=== PATIENT | female | born 1930 | race Caucasian/White ===

== ENCOUNTER 2017-10-24 15:32 | Inpatient (IN) | payer MEDICARE, OTHER ==
[2017-10-24 16:29] LABS: ADD MAN DIFF? NO
[2017-10-24 16:32] LABS: BASOPHILS % 0.3 % (0.0-2.0); EOSINOPHILS # 0.1 10^3/ul (0.0-0.5); EOSINOPHILS % 0.5 % (0.0-7.0); HEMATOCRIT 36.8 % (37.0-47.0); HEMOGLOBIN 11.8 g/dl (12.0-16.0); LYMPHOCYTES # 1.8 10^3/ul (0.8-2.9); LYMPHOCYTES % 13.5 % (15.0-51.0); MEAN CORPUSCULAR HEMOGLOBIN 33.5 pg (29.0-33.0); MEAN CORPUSCULAR HGB CONC 32.1 g/dl (32.0-37.0); MEAN CORPUSCULAR VOLUME 104.5 fl (82.0-101.0); MEAN PLATELET VOLUME 10.3 fl (7.4-10.4); MONOCYTE # 0.6 10^3/ul (0.3-0.9); MONOCYTES % 4.5 % (0.0-11.0); NEUTROPHIL # 10.8 10^3/ul (1.6-7.5); NEUTROPHILS % 80.5 % (39.0-77.0); PLATELET COUNT 242 10^3/UL (140-415); RED BLOOD COUNT 3.52 10^6/ul (4.20-5.40); RED CELL DISTRIBUTION WIDTH 14.1 % (11.5-14.5)
[2017-10-24 16:32] LABS: WHITE BLOOD COUNT 13.4 10^3/ul (4.8-10.8)
[2017-10-24 16:49] LABS: ANION GAP 24 (8-16); BLOOD UREA NITROGEN 36 mg/dl (7-20); CALCIUM 8.7 mg/dl (8.4-10.2); CARBON DIOXIDE 17 mmol/L (21-31); CHLORIDE 115 mmol/L (97-110); CREATININE 1.73 mg/dl (0.44-1.00); GLUCOSE 192 mg/dl (70-220); LIPASE 68 U/L (23-300); POTASSIUM 5.1 mmol/L (3.5-5.1); SODIUM 151 mmol/L (135-144)
[2017-10-24] MEDS: SOD CHLORIDE 0.9% 1,000 ML IV ×2 (16:49→19:50)
[2017-10-24] MEDS: ONDANSETRON 4 MG INJ IV (16:49)
[2017-10-24 17:02] LABS: TROPONIN-I < 0.012 ng/ml (0.00-0.12)
[2017-10-24 17:11] LABS: LACTIC ACID 4.4 mmol/L (0.5-2.0)
[2017-10-24 17:53] LABS: ADD UMIC YES; UR ASCORBIC ACID NEGATIVE (NEGATIVE); UR BILIRUBIN (Dip) NEGATIVE (NEGATIVE); UR BLOOD (Dip) 1+ mg/dL (NEGATIVE); UR CLARITY SLIGHTLY CLOUDY (CLEAR); UR COLOR YELLOW (YELLOW); UR GLUCOSE (Dip) 1+ mg/dL (NEGATIVE); UR KETONES (Dip) NEGATIVE (NEGATIVE); UR LEUKOCYTE ESTERASE (Dip) NEGATIVE Leu/ul (NEGATIVE); UR NITRITE (Dip) NEGATIVE (NEGATIVE); UR RBC 11 /HPF (0-5); UR SPECIFIC GRAVITY (Dip) 1.016 (1.003-1.030); UR TOTAL PROTEIN (Dip) NEGATIVE (NEGATIVE); UR UROBILINOGEN (Dip) NEGATIVE (NEGATIVE); UR WBC 2 /HPF (0-5)
[2017-10-24] MEDS: PIPER-TAZO 3.375 GM IV (PMX) 100 ML IVPB (18:00)
[2017-10-24] MEDS: SODIUM CHLORIDE 0.9% 1L BAG IV* (18:00)
[2017-10-24 19:36] LABS: LACTIC ACID 1.6 mmol/L (0.5-2.0)
[2017-10-24] MEDS: PIPER-TAZO 2.25 GM (PMX) 50 ML IVPB (22:00)
[2017-10-24] MEDS ORDERED: ACETAMINOPHEN 120 MG SUPP PR (22:30)
[2017-10-24 22:42] LABS: IRON 60 ug/dl (35-150)
[2017-10-24 22:43] LABS: LACTIC ACID 1.4 mmol/L (0.5-2.0)
[2017-10-24 22:51] LABS: % IRON SATURATION 28 % SAT (22-52); TOTAL IRON BINDING CAPACITY 211 ug/dl (241-421)
[2017-10-24 22:53] LABS: MAGNESIUM 2.4 mg/dl (1.7-2.5)
[2017-10-24] MEDS: SOD CHLORIDE 0.45% 1,000 ML IV (23:29)
[2017-10-24] MEDS: LORAZEPAM 2 MG INJ IV (23:29)
[2017-10-25 02:28] LABS: LACTIC ACID 1.4 mmol/L (0.5-2.0)
[2017-10-25] MEDS: PANTOPRAZOLE 40 MG INJ IV (05:10)
[2017-10-25] MEDS: PIPER-TAZO 2.25 GM (PMX) 50 ML IVPB ×3 (05:10→22:44)
[2017-10-25 08:03] LABS: ADD MAN DIFF? NO
[2017-10-25 08:11] LABS: WHITE BLOOD COUNT 11.7 10^3/ul (4.8-10.8)
[2017-10-25 08:11] LABS: BASOPHIL # 0.1 10^3/ul (0.0-0.1); BASOPHILS % 0.4 % (0.0-2.0); EOSINOPHILS # 0.1 10^3/ul (0.0-0.5); HEMATOCRIT 34.1 % (37.0-47.0); HEMOGLOBIN 10.9 g/dl (12.0-16.0); LYMPHOCYTES # 1.9 10^3/ul (0.8-2.9); LYMPHOCYTES % 16.3 % (15.0-51.0); MEAN CORPUSCULAR HEMOGLOBIN 34.3 pg (29.0-33.0); MEAN CORPUSCULAR VOLUME 107.2 fl (82.0-101.0); MONOCYTE # 0.7 10^3/ul (0.3-0.9); MONOCYTES % 6.2 % (0.0-11.0); NEUTROPHIL # 8.8 10^3/ul (1.6-7.5); NEUTROPHILS % 75.2 % (39.0-77.0); PLATELET COUNT 183 10^3/UL (140-415); RED BLOOD COUNT 3.18 10^6/ul (4.20-5.40)
[2017-10-25 08:14] LABS: LACTIC ACID 1.3 mmol/L (0.5-2.0)
[2017-10-25 08:37] LABS: ALANINE AMINOTRANSFERASE 31 IU/L (13-69); ALBUMIN 3.4 g/dl (3.3-4.9); ALKALINE PHOSPHATASE 95 IU/L (42-121); ANION GAP 17 (8-16); ASPARTATE AMINO TRANSFERASE 33 IU/L (15-46); BILIRUBIN,INDIRECT 0.2 mg/dl (0-1.1); BILIRUBIN,TOTAL 0.2 mg/dl (0.2-1.3); BLOOD UREA NITROGEN 24 mg/dl (7-20); CALCIUM 7.4 mg/dl (8.4-10.2); CARBON DIOXIDE 20 mmol/L (21-31); CHLORIDE 117 mmol/L (97-110); CREATININE 1.23 mg/dl (0.44-1.00); GLUCOSE 108 mg/dl (70-220); POTASSIUM 5.1 mmol/L (3.5-5.1); SODIUM 149 mmol/L (135-144); TOTAL PROTEIN 6.8 g/dl (6.1-8.1)
[2017-10-25] MEDS: OLANZAPINE 2.5 MG TAB PO (09:00)
[2017-10-25] MEDS: SOD CHLORIDE 0.45% 1,000 ML IV (13:03)
[2017-10-26] MEDS: PANTOPRAZOLE 40 MG INJ IV (06:34)
[2017-10-26] MEDS: PIPER-TAZO 2.25 GM (PMX) 50 ML IVPB ×3 (06:34→22:05)
[2017-10-26] MEDS: SOD CHLORIDE 0.45% 1,000 ML IV ×2 (06:34→17:18)
[2017-10-26] MEDS: OLANZAPINE 2.5 MG TAB PO (09:04)
[2017-10-27] MEDS: PIPER-TAZO 2.25 GM (PMX) 50 ML IVPB ×3 (06:37→22:38)
[2017-10-27] MEDS: PANTOPRAZOLE 40 MG INJ IV (06:37)
[2017-10-27] MEDS: SOD CHLORIDE 0.45% 1,000 ML IV ×3 (06:58→22:39)
[2017-10-27 07:24] LABS: ADD MAN DIFF? NO
[2017-10-27 07:29] LABS: BASOPHIL # 0.1 10^3/ul (0.0-0.1); BASOPHILS % 0.5 % (0.0-2.0); EOSINOPHILS # 0.2 10^3/ul (0.0-0.5); EOSINOPHILS % 1.4 % (0.0-7.0); HEMATOCRIT 31.9 % (37.0-47.0); HEMOGLOBIN 10.6 g/dl (12.0-16.0); LYMPHOCYTES # 1.8 10^3/ul (0.8-2.9); LYMPHOCYTES % 16.3 % (15.0-51.0); MEAN CORPUSCULAR HEMOGLOBIN 33.7 pg (29.0-33.0); MEAN CORPUSCULAR HGB CONC 33.2 g/dl (32.0-37.0); MEAN CORPUSCULAR VOLUME 101.3 fl (82.0-101.0); MEAN PLATELET VOLUME 9.8 fl (7.4-10.4); MONOCYTE # 0.7 10^3/ul (0.3-0.9); MONOCYTES % 6.6 % (0.0-11.0); NEUTROPHIL # 8.1 10^3/ul (1.6-7.5); NEUTROPHILS % 74.7 % (39.0-77.0); PLATELET COUNT 186 10^3/UL (140-415); RED BLOOD COUNT 3.15 10^6/ul (4.20-5.40); RED CELL DISTRIBUTION WIDTH 13.4 % (11.5-14.5)
[2017-10-27 07:29] LABS: WHITE BLOOD COUNT 10.8 10^3/ul (4.8-10.8)
[2017-10-27 07:49] LABS: ALANINE AMINOTRANSFERASE 25 IU/L (13-69); ALBUMIN 3.4 g/dl (3.3-4.9); ALKALINE PHOSPHATASE 78 IU/L (42-121); ANION GAP 15 (8-16); ASPARTATE AMINO TRANSFERASE 31 IU/L (15-46); BILIRUBIN,INDIRECT 0.2 mg/dl (0-1.1); BILIRUBIN,TOTAL 0.2 mg/dl (0.2-1.3); BLOOD UREA NITROGEN 19 mg/dl (7-20); CALCIUM 7.8 mg/dl (8.4-10.2); CARBON DIOXIDE 19 mmol/L (21-31); CHLORIDE 114 mmol/L (97-110); CREATININE 1.05 mg/dl (0.44-1.00); GLUCOSE 101 mg/dl (70-220); POTASSIUM 4.2 mmol/L (3.5-5.1); SODIUM 144 mmol/L (135-144); TOTAL PROTEIN 6.8 g/dl (6.1-8.1)
[2017-10-27] MEDS: OLANZAPINE 2.5 MG TAB PO (08:24)
[2017-10-28] MEDS: PIPER-TAZO 2.25 GM (PMX) 50 ML IVPB (06:53)
[2017-10-28] MEDS: PANTOPRAZOLE 40 MG INJ IV (06:53)
[2017-10-28] MEDS: OLANZAPINE 2.5 MG TAB PO (09:07)
== END 2017-10-28 15:40 | disposition home or self-care (01) | DRG 871 ==
LOC: TEL 19:17 → E/R 15:32
DX: A41.9 Sepsis, unspecified organism (principal); J69.0 Pneumonitis due to inhalation of food and vomit; R64 Cachexia; N39.0 Urinary tract infection, site not specified; N17.9 Acute kidney failure, unspecified; Z68.21 Body mass index [BMI] 21.0-21.9, adult; R15.9 Full incontinence of feces; G30.9 Alzheimer's disease, unspecified; F02.80 Dementia in other diseases classified elsewhere, unspecified severity, without behavioral disturbance, psychotic disturbance, mood disturbance, and anxiety; M40.209 Unspecified kyphosis, site unspecified; M41.9 Scoliosis, unspecified; F41.9 Anxiety disorder, unspecified; Z91.81 History of falling; R13.10 Dysphagia, unspecified; R09.82 Postnasal drip; M81.0 Age-related osteoporosis without current pathological fracture; E86.0 Dehydration; R32 Unspecified urinary incontinence; M62.50 Muscle wasting and atrophy, not elsewhere classified, unspecified site; Z86.73 Personal history of transient ischemic attack (TIA), and cerebral infarction without residual deficits; I25.10 Atherosclerotic heart disease of native coronary artery without angina pectoris; R00.1 Bradycardia, unspecified; K21.9 Gastro-esophageal reflux disease without esophagitis; K44.9 Diaphragmatic hernia without obstruction or gangrene; H91.90 Unspecified hearing loss, unspecified ear; D64.9 Anemia, unspecified
CPT/HCPCS: 36415; 71045; 80048; 80053; 81001; 83540; 83605; 83690; 83735; 84484; 85025; 87040; 87086; 92610; 93005; 96361; 96374; 96375; 97110; 97116; 97162; 97530; 99291-25

== ENCOUNTER 2018-09-28 17:44 | Inpatient (IN) | payer MEDICARE, OTHER ==
[2018-09-28 18:21] LABS: ADD MAN DIFF? NO
[2018-09-28] MEDS: SOD CHLORIDE 0.9% 500 ML IV (18:23)
[2018-09-28 18:26] LABS: BASOPHIL # 0.1 10^3/ul (0.0-0.1); BASOPHILS % 0.4 % (0.0-2.0); HEMATOCRIT 39.5 % (37.0-47.0); LYMPHOCYTES % 10.3 % (15.0-51.0); MEAN CORPUSCULAR HEMOGLOBIN 34.1 pg (29.0-33.0); MEAN CORPUSCULAR HGB CONC 32.9 g/dl (32.0-37.0); MEAN CORPUSCULAR VOLUME 103.7 fl (82.0-101.0); MEAN PLATELET VOLUME 10.1 fl (7.4-10.4); MONOCYTES % 5.1 % (0.0-11.0); NEUTROPHIL # 16.3 10^3/ul (1.6-7.5); PLATELET COUNT 201 10^3/UL (140-415); RED BLOOD COUNT 3.81 10^6/ul (4.20-5.40); RED CELL DISTRIBUTION WIDTH 13.2 % (11.5-14.5)
[2018-09-28 18:26] LABS: WHITE BLOOD COUNT 19.9 10^3/ul (4.8-10.8)
[2018-09-28] MEDS ORDERED: ONDANSETRON 4 MG INJ IV ×2 (18:30→22:30)
[2018-09-28] MEDS ORDERED: ACETAMINOPHEN 325 MG TAB PO (18:30)
[2018-09-28 18:42] LABS: ALANINE AMINOTRANSFERASE 14 IU/L (13-69); ALBUMIN 4.3 g/dl (3.3-4.9); ALBUMIN/GLOBULIN RATIO 1.04; ALKALINE PHOSPHATASE 84 IU/L (42-121); AMYLASE 154 U/L (11-123); ANION GAP 12 (5-13); ASPARTATE AMINO TRANSFERASE 34 IU/L (15-46); BILIRUBIN,INDIRECT 0.2 mg/dl (0-1.1); BILIRUBIN,TOTAL 0.2 mg/dl (0.2-1.3); BLOOD UREA NITROGEN 36 mg/dl (7-20); CALCIUM 9.8 mg/dl (8.4-10.2); CARBON DIOXIDE 23 mmol/L (21-31); CHLORIDE 108 mmol/L (97-110); CREATININE 1.48 mg/dl (0.44-1.00); GLUCOSE 196 mg/dl (70-220); LIPASE 70 U/L (23-300); POTASSIUM 5.2 mmol/L (3.5-5.1); SODIUM 143 mmol/L (135-144); TOTAL PROTEIN 8.4 g/dl (6.1-8.1)
[2018-09-28 18:45] LABS: PARTIAL THROMBOPLASTIN TIME 36.3 Sec (23.0-35.0); PROTIME 14.3 Sec (11.9-14.9); PT RATIO 1.1
[2018-09-28 18:53] LABS: TROPONIN-I < 0.012 ng/ml (0.000-0.120)
[2018-09-28 19:37] LABS: ADD UMIC YES; UR ASCORBIC ACID NEGATIVE (NEGATIVE); UR BILIRUBIN (Dip) NEGATIVE (NEGATIVE); UR BLOOD (Dip) 3+ mg/dL (NEGATIVE); UR CLARITY SLIGHTLY CLOUDY (CLEAR); UR COLOR YELLOW (YELLOW); UR GLUCOSE (Dip) 1+ mg/dL (NEGATIVE); UR KETONES (Dip) NEGATIVE (NEGATIVE); UR LEUKOCYTE ESTERASE (Dip) 1+ Leu/ul (NEGATIVE); UR NITRITE (Dip) NEGATIVE (NEGATIVE); UR RBC 28 /HPF (0-5); UR SPECIFIC GRAVITY (Dip) 1.014 (1.003-1.030); UR TOTAL PROTEIN (Dip) NEGATIVE (NEGATIVE); UR UROBILINOGEN (Dip) NEGATIVE (NEGATIVE); UR WBC 9 /HPF (0-5)
[2018-09-28] MEDS: ONDANSETRON 4 MG INJ IV (20:22)
[2018-09-28] MEDS: CEFTRIAXONE 1 GM/50 ML (PMX) 50 ML IVPB (20:22)
[2018-09-28] MEDS: morphine 2 MG INJ IV (20:22)
[2018-09-28] MEDS: METHYLPREDNISOLONE 125 MG INJ IV (23:28)
[2018-09-28] MEDS: LEVOFLOXACIN 500MG/D5W (PMX) 100 ML IVPB (23:28)
[2018-09-28] MEDS: DEXTROSE 5%-0.9% NACL 1,000 ML IV (23:28)
[2018-09-29 06:21] LABS: ADD MAN DIFF? NO
[2018-09-29] MEDS: LANSOPRAZOLE 30 MG CAP PO (06:21)
[2018-09-29 06:39] LABS: WHITE BLOOD COUNT 16.3 10^3/ul (4.8-10.8)
[2018-09-29 06:39] LABS: BASOPHILS % 0.1 % (0.0-2.0); HEMATOCRIT 35.9 % (37.0-47.0); HEMOGLOBIN 11.5 g/dl (12.0-16.0); LYMPHOCYTES # 1.1 10^3/ul (0.8-2.9); LYMPHOCYTES % 6.5 % (15.0-51.0); MEAN CORPUSCULAR HEMOGLOBIN 33.8 pg (29.0-33.0); MEAN CORPUSCULAR VOLUME 105.6 fl (82.0-101.0); MEAN PLATELET VOLUME 10.3 fl (7.4-10.4); MONOCYTE # 0.1 10^3/ul (0.3-0.9); MONOCYTES % 0.9 % (0.0-11.0); NEUTROPHIL # 14.9 10^3/ul (1.6-7.5); NEUTROPHILS % 91.5 % (39.0-77.0); PLATELET COUNT 172 10^3/UL (140-415); RED CELL DISTRIBUTION WIDTH 13.4 % (11.5-14.5)
[2018-09-29 06:55] LABS: IRON 52 ug/dl (35-150)
[2018-09-29 07:06] LABS: % IRON SATURATION 26 % SAT (22-52); TOTAL IRON BINDING CAPACITY 203 ug/dl (241-421)
[2018-09-29 07:15] LABS: MAGNESIUM 2.3 mg/dl (1.7-2.5)
[2018-09-29] MEDS: METHYLPREDNISOLONE 40 MG INJ IV (08:32)
[2018-09-29] MEDS: MEMANTINE 5 MG TAB PO (08:33)
[2018-09-29] MEDS: CHOLECALCIFEROL 1,000 UNIT TAB PO (08:33)
[2018-09-29] MEDS: CHOLECALCIFEROL 2,000 UNIT CAP PO (08:33)
[2018-09-29] MEDS: ALBUTEROL/IPRATROPIUM (NEB) 3 ML AMP HHN ×2 (09:33→23:43)
[2018-09-29] MEDS: ACETAMINOPHEN 325 MG TAB PO (11:00)
[2018-09-29 23:43] LABS: ANION GAP 6 (5-13); BLOOD UREA NITROGEN 42 mg/dl (7-20); CARBON DIOXIDE 22 mmol/L (21-31); CHLORIDE 109 mmol/L (97-110); CREATININE 1.56 mg/dl (0.44-1.00); GLUCOSE 168 mg/dl (70-220); POTASSIUM 5.6 mmol/L (3.5-5.1); SODIUM 137 mmol/L (135-144)
[2018-09-30] MEDS: LANSOPRAZOLE 30 MG CAP PO (05:33)
[2018-09-30] MEDS: DEXTROSE 5%-0.9% NACL 1,000 ML IV (05:33)
[2018-09-30 05:52] LABS: ADD MAN DIFF? NO
[2018-09-30 05:57] LABS: WHITE BLOOD COUNT 21.5 10^3/ul (4.8-10.8)
[2018-09-30 05:57] LABS: BASOPHILS % 0.2 % (0.0-2.0); HEMATOCRIT 32.3 % (37.0-47.0); HEMOGLOBIN 10.8 g/dl (12.0-16.0); LYMPHOCYTES # 2.3 10^3/ul (0.8-2.9); LYMPHOCYTES % 10.6 % (15.0-51.0); MEAN CORPUSCULAR HEMOGLOBIN 33.9 pg (29.0-33.0); MEAN CORPUSCULAR HGB CONC 33.4 g/dl (32.0-37.0); MEAN CORPUSCULAR VOLUME 101.3 fl (82.0-101.0); MEAN PLATELET VOLUME 10.4 fl (7.4-10.4); MONOCYTE # 1.3 10^3/ul (0.3-0.9); MONOCYTES % 6.1 % (0.0-11.0); NEUTROPHIL # 17.5 10^3/ul (1.6-7.5); NEUTROPHILS % 81.2 % (39.0-77.0); PLATELET COUNT 178 10^3/UL (140-415); RED BLOOD COUNT 3.19 10^6/ul (4.20-5.40)
[2018-09-30 06:17] LABS: RETICULOCYTE COUNT # 0.065 X10^6 (0.020-0.110); RETICULOCYTE COUNT % 2.1 % (0.5-1.5)
[2018-09-30 06:20] LABS: LACTATE DEHYDROGENASE 494 IU/L (313-618)
[2018-09-30 06:20] LABS: URIC ACID 7.3 mg/dl (3.1-7.9)
[2018-09-30 06:25] LABS: ALANINE AMINOTRANSFERASE 21 IU/L (13-69); ALBUMIN 3.4 g/dl (3.3-4.9); ALBUMIN/GLOBULIN RATIO 0.97; ALKALINE PHOSPHATASE 64 IU/L (42-121); ANION GAP 12 (5-13); ASPARTATE AMINO TRANSFERASE 27 IU/L (15-46); BILIRUBIN,INDIRECT 0.1 mg/dl (0-1.1); BILIRUBIN,TOTAL 0.1 mg/dl (0.2-1.3); BLOOD UREA NITROGEN 40 mg/dl (7-20); CALCIUM 8.9 mg/dl (8.4-10.2); CARBON DIOXIDE 22 mmol/L (21-31); CHLORIDE 108 mmol/L (97-110); CREATININE 1.55 mg/dl (0.44-1.00); GLUCOSE 143 mg/dl (70-220); POTASSIUM 4.8 mmol/L (3.5-5.1); SODIUM 142 mmol/L (135-144); TOTAL PROTEIN 6.9 g/dl (6.1-8.1)
[2018-09-30 06:30] LABS: IMMUNOGLOBULIN A 327 mg/dl (70-400); IMMUNOGLOBULIN G 938 mg/dl (700-1600); IMMUNOGLOBULIN M 102 mg/dl (40-230)
[2018-09-30 06:32] LABS: IRON 62 ug/dl (35-150)
[2018-09-30 06:42] LABS: % IRON SATURATION 33 % SAT (22-52); TOTAL IRON BINDING CAPACITY 189 ug/dl (241-421)
[2018-09-30 07:10] LABS: ERYTHROCYTE SEDIMENTATION RATE 90 mm/Hr (0-30)
[2018-09-30 07:27] LABS: FOLATE 6.6 ng/ml (2.8-20.0)
[2018-09-30] MEDS: ALBUTEROL/IPRATROPIUM (NEB) 3 ML AMP HHN ×3 (08:28→23:59)
[2018-09-30] MEDS: CHOLECALCIFEROL 2,000 UNIT CAP PO (08:40)
[2018-09-30] MEDS: MEMANTINE 5 MG TAB PO (08:40)
[2018-09-30] MEDS: CHOLECALCIFEROL 1,000 UNIT TAB PO (08:40)
[2018-09-30] MEDS: METHYLPREDNISOLONE 40 MG INJ IV (08:40)
[2018-09-30] MEDS: ACETAMINOPHEN 325 MG TAB PO (10:29)
[2018-09-30] MEDS: PIPER-TAZO 2.25 GM (PMX) 50 ML IVPB ×2 (17:43→21:55)
[2018-10-01] MEDS: LEVOFLOXACIN 250MG/D5W (PMX) 50 ML IVPB (00:13)
[2018-10-01] MEDS: PIPER-TAZO 2.25 GM (PMX) 50 ML IVPB ×3 (05:24→21:41)
[2018-10-01] MEDS: DEXTROSE 5%-0.9% NACL 1,000 ML IV ×2 (05:24→23:00)
[2018-10-01] MEDS: LANSOPRAZOLE 30 MG CAP PO (05:25)
[2018-10-01 05:32] LABS: PROTEIN, TOTAL 6.1 g/dL (6.1-8.1)
[2018-10-01 06:26] LABS: ABNORMAL IP MESSAGE 1; HEMATOCRIT 34.6 % (37.0-47.0); HEMOGLOBIN 11.5 g/dl (12.0-16.0); MEAN CORPUSCULAR HEMOGLOBIN 33.9 pg (29.0-33.0); MEAN CORPUSCULAR HGB CONC 33.2 g/dl (32.0-37.0); MEAN CORPUSCULAR VOLUME 102.1 fl (82.0-101.0); MEAN PLATELET VOLUME 10.3 fl (7.4-10.4); PLATELET COUNT 190 10^3/UL (140-415); RED BLOOD COUNT 3.39 10^6/ul (4.20-5.40); RED CELL DISTRIBUTION WIDTH 13.1 % (11.5-14.5)
[2018-10-01 06:31] LABS: ADD MAN DIFF? YES; POSITIVE DIFF @See below
[2018-10-01 06:50] LABS: ALANINE AMINOTRANSFERASE 29 IU/L (13-69); ALBUMIN 3.6 g/dl (3.3-4.9); ALBUMIN/GLOBULIN RATIO 1.02; ALKALINE PHOSPHATASE 70 IU/L (42-121); ANION GAP 11 (5-13); ASPARTATE AMINO TRANSFERASE 49 IU/L (15-46); BILIRUBIN,INDIRECT 0.3 mg/dl (0-1.1); BILIRUBIN,TOTAL 0.3 mg/dl (0.2-1.3); BLOOD UREA NITROGEN 34 mg/dl (7-20); CARBON DIOXIDE 23 mmol/L (21-31); CHLORIDE 109 mmol/L (97-110); CREATININE 1.35 mg/dl (0.44-1.00); GLUCOSE 135 mg/dl (70-220); POTASSIUM 4.8 mmol/L (3.5-5.1); SODIUM 143 mmol/L (135-144); TOTAL PROTEIN 7.1 g/dl (6.1-8.1)
[2018-10-01 07:31] LABS: BAND NEUTROPHILS #M 0.3 10^3/ul (0.0-0.6); BAND NEUTROPHILS % (M) 2 % (0-4); GIANT THROMBO% (M) 1 % (0-0); LYMPHOCYTES % (M) 17 % (15-51); MONOCYTE #M 0.9 10^3/ul (0.3-0.9); MONOCYTES % (M) 5 % (0-11); PLATELET ESTIMATE NORMAL; SEG NEUT #M 13.7 10^3/ul (1.6-7.5); SEGMENTED NEUTROPHILS (M) % 76 % (39-77); SMUDGE%M 8 % (0-0)
[2018-10-01] MEDS: ALBUTEROL/IPRATROPIUM (NEB) 3 ML AMP HHN ×3 (07:46→23:21)
[2018-10-01] MEDS: MEMANTINE 5 MG TAB PO (09:10)
[2018-10-01] MEDS: CHOLECALCIFEROL 2,000 UNIT CAP PO (09:10)
[2018-10-01] MEDS: CHOLECALCIFEROL 1,000 UNIT TAB PO (09:10)
[2018-10-01] MEDS: CLONIDINE 0.1 MG/24 HR PATCH TRANSDERM (11:42)
[2018-10-01 13:26] LABS: IMMUNOGLOBULIN E 33 kU/L (<OR=114)
[2018-10-01] MEDS: ACETAMINOPHEN 325 MG TAB PO (13:48)
[2018-10-01 15:47] LABS: ALBUMIN 3.1 g/dL (3.8-4.8); ALPHA-1-GLOBULINS 0.4 g/dL (0.2-0.3); BETA 2 GLOBULINS 0.4 g/dL (0.2-0.5); BETA GLOBULINS 0.4 g/dL (0.4-0.6); GAMMA GLOBULINS 0.9 g/dL (0.8-1.7)
[2018-10-02] MEDS: AMLODIPINE 5 MG TAB PO ×3 (02:44→20:57)
[2018-10-02] MEDS: MECLIZINE 12.5 MG TAB PO ×2 (02:44→07:50)
[2018-10-02] MEDS: ACETAMINOPHEN 325 MG TAB PO ×3 (02:45→20:57)
[2018-10-02] MEDS: PIPER-TAZO 2.25 GM (PMX) 50 ML IVPB ×3 (06:44→22:49)
[2018-10-02] MEDS: LANSOPRAZOLE 30 MG CAP PO (06:44)
[2018-10-02] MEDS: MEMANTINE 5 MG TAB PO (07:50)
[2018-10-02] MEDS: CHOLECALCIFEROL 2,000 UNIT CAP PO (07:50)
[2018-10-02] MEDS: CHOLECALCIFEROL 1,000 UNIT TAB PO (07:50)
[2018-10-02] MEDS: ALBUTEROL/IPRATROPIUM (NEB) 3 ML AMP HHN ×3 (08:32→23:28)
[2018-10-02 13:57] LABS: CREATININE,URINE RANDOM 41.97 mg/dl (20-320); PROTEIN/CREAT RATIO 0.78 RATIO
[2018-10-02 14:28] LABS: SODIUM,URINE RANDOM 117 mmol/L (30-90)
[2018-10-02 15:04] LABS: WHITE BLOOD COUNT 17.8 10^3/ul (4.8-10.8)
[2018-10-02 15:04] LABS: ABNORMAL IP MESSAGE 1; HEMATOCRIT 38.7 % (37.0-47.0); HEMOGLOBIN 12.7 g/dl (12.0-16.0); MEAN CORPUSCULAR HEMOGLOBIN 33.9 pg (29.0-33.0); MEAN CORPUSCULAR HGB CONC 32.8 g/dl (32.0-37.0); MEAN CORPUSCULAR VOLUME 103.2 fl (82.0-101.0); MEAN PLATELET VOLUME 10.2 fl (7.4-10.4); PLATELET COUNT 240 10^3/UL (140-415); RED BLOOD COUNT 3.75 10^6/ul (4.20-5.40); RED CELL DISTRIBUTION WIDTH 13.2 % (11.5-14.5)
[2018-10-02 15:06] LABS: ADD MAN DIFF? YES; POSITIVE DIFF @See below
[2018-10-02 15:22] LABS: ANION GAP 12 (5-13); BLOOD UREA NITROGEN 41 mg/dl (7-20); CALCIUM 9.1 mg/dl (8.4-10.2); CARBON DIOXIDE 26 mmol/L (21-31); CHLORIDE 101 mmol/L (97-110); CREATININE 1.66 mg/dl (0.44-1.00); GLUCOSE 126 mg/dl (70-220); MAGNESIUM 2.1 mg/dl (1.7-2.5); PHOSPHORUS 4.2 mg/dl (2.5-4.9); POTASSIUM 4.7 mmol/L (3.5-5.1); SODIUM 139 mmol/L (135-144)
[2018-10-02 15:22] LABS: CREATINE KINASE 101 IU/L (23-200)
[2018-10-02 15:45] LABS: BAND NEUTROPHILS #M 0.1 10^3/ul (0.0-0.6); BAND NEUTROPHILS % (M) 1 % (0-4); ERYTHROBLAST% (NRBC) (M) 1 % (0-0); GIANT THROMBO% (M) 1 % (0-0); LYMPHOCYTES #M 1.7 10^3/ul (0.8-2.9); LYMPHOCYTES % (M) 10 % (15-51); METAMYELOCYTES #M 0.1 10^3/ul (0.0-0.0); METAMYELOCYTES %M 1 % (0-0); MONOCYTE #M 1.7 10^3/ul (0.3-0.9); MONOCYTES % (M) 10 % (0-11); MYELOCYTES #M 0.1 10^3/ul (0.0-0.0); MYELOCYTES % (M) 1 % (0-0); PLATELET ESTIMATE NORMAL; POLYCHROMASIA 1+ (0-0); SEG NEUT #M 13.7 10^3/ul (1.6-7.5); SEGMENTED NEUTROPHILS (M) % 77 % (39-77); SMUDGE%M 7 % (0-0)
[2018-10-02] MEDS: LEVOFLOXACIN 250MG/D5W (PMX) 50 ML IVPB (20:56)
[2018-10-02] MEDS: NACL 0.9% 3 ML SYG IV (20:57)
[2018-10-03] MEDS: NACL 0.9% 3 ML SYG IV ×3 (06:05→21:25)
[2018-10-03] MEDS: LANSOPRAZOLE 30 MG CAP PO (06:05)
[2018-10-03 07:57] LABS: ABNORMAL IP MESSAGE 1; HEMOGLOBIN 12.2 g/dl (12.0-16.0); MEAN CORPUSCULAR HEMOGLOBIN 34.1 pg (29.0-33.0); MEAN CORPUSCULAR HGB CONC 33.9 g/dl (32.0-37.0); MEAN CORPUSCULAR VOLUME 100.6 fl (82.0-101.0); MEAN PLATELET VOLUME 9.9 fl (7.4-10.4); PLATELET COUNT 205 10^3/UL (140-415); RED BLOOD COUNT 3.58 10^6/ul (4.20-5.40); RED CELL DISTRIBUTION WIDTH 13.3 % (11.5-14.5)
[2018-10-03 07:57] LABS: WHITE BLOOD COUNT 13.5 10^3/ul (4.8-10.8)
[2018-10-03] MEDS: CHOLECALCIFEROL 1,000 UNIT TAB PO (08:00)
[2018-10-03] MEDS: AMLODIPINE 5 MG TAB PO ×2 (08:00→21:24)
[2018-10-03] MEDS: CHOLECALCIFEROL 2,000 UNIT CAP PO (08:01)
[2018-10-03] MEDS: MEMANTINE 5 MG TAB PO (08:01)
[2018-10-03] MEDS: ACETAMINOPHEN 325 MG TAB PO ×3 (08:01→22:00)
[2018-10-03 08:02] LABS: POSITIVE DIFF @See below
[2018-10-03 08:03] LABS: ADD MAN DIFF? YES
[2018-10-03 08:18] LABS: ALANINE AMINOTRANSFERASE 28 IU/L (13-69); ALBUMIN 3.2 g/dl (3.3-4.9); ALBUMIN/GLOBULIN RATIO 0.96; ALKALINE PHOSPHATASE 61 IU/L (42-121); ANION GAP 10 (5-13); ASPARTATE AMINO TRANSFERASE 28 IU/L (15-46); BILIRUBIN,INDIRECT 0.5 mg/dl (0-1.1); BILIRUBIN,TOTAL 0.5 mg/dl (0.2-1.3); BLOOD UREA NITROGEN 41 mg/dl (7-20); CARBON DIOXIDE 25 mmol/L (21-31); CHLORIDE 105 mmol/L (97-110); CREATININE 1.58 mg/dl (0.44-1.00); GLUCOSE 143 mg/dl (70-220); POTASSIUM 4.6 mmol/L (3.5-5.1); SODIUM 140 mmol/L (135-144); TOTAL PROTEIN 6.5 g/dl (6.1-8.1)
[2018-10-03] MEDS: ALBUTEROL/IPRATROPIUM (NEB) 3 ML AMP HHN ×3 (08:20→23:54)
[2018-10-03] MEDS: PIPER-TAZO 2.25 GM (PMX) 50 ML IVPB ×3 (08:42→21:25)
[2018-10-03 09:19] LABS: BAND NEUTROPHILS #M 0.4 10^3/ul (0.0-0.6); BAND NEUTROPHILS % (M) 3 % (0-4); BASOPHIL #M 0.2 10^3/ul (0.0-0.0); BASOPHILS % (M) 2 % (0-2); LYMPHOCYTES #M 1.3 10^3/ul (0.8-2.9); LYMPHOCYTES % (M) 10 % (15-51); METAMYELOCYTES #M 0.1 10^3/ul (0.0-0.0); METAMYELOCYTES %M 1 % (0-0); MONOCYTE #M 0.5 10^3/ul (0.3-0.9); MONOCYTES % (M) 4 % (0-11); MYELOCYTES #M 0.4 10^3/ul (0.0-0.0); MYELOCYTES % (M) 3 % (0-0); PLATELET ESTIMATE NORMAL; POIKILOCYTOSIS 1+ (0-0); POLYCHROMASIA 2+ (0-0); PROMYELOCYTES #M 0.1 10^3/ul (0-0); PROMYELOCYTES % (M) 1 % (0-0); SEG NEUT #M 10.3 10^3/ul (1.6-7.5); SEGMENTED NEUTROPHILS (M) % 76 % (39-77); SMUDGE%M 4 % (0-0)
[2018-10-03] MEDS: LIDOCAINE 5% PATCH TD (21:24)
[2018-10-04] MEDS: PIPER-TAZO 2.25 GM (PMX) 50 ML IVPB ×3 (05:03→22:56)
[2018-10-04] MEDS: NACL 0.9% 3 ML SYG IV ×3 (05:03→22:56)
[2018-10-04] MEDS: ACETAMINOPHEN 325 MG TAB PO ×3 (05:03→14:56)
[2018-10-04] MEDS: LANSOPRAZOLE 30 MG CAP PO (05:03)
[2018-10-04 06:30] LABS: ABNORMAL IP MESSAGE 1; HEMATOCRIT 36.4 % (37.0-47.0); MEAN CORPUSCULAR HEMOGLOBIN 33.9 pg (29.0-33.0); MEAN CORPUSCULAR VOLUME 102.8 fl (82.0-101.0); MEAN PLATELET VOLUME 9.8 fl (7.4-10.4); PLATELET COUNT 201 10^3/UL (140-415); RED BLOOD COUNT 3.54 10^6/ul (4.20-5.40); RED CELL DISTRIBUTION WIDTH 13.2 % (11.5-14.5)
[2018-10-04 06:30] LABS: WHITE BLOOD COUNT 14.3 10^3/ul (4.8-10.8)
[2018-10-04 06:45] LABS: ADD MAN DIFF? YES; POSITIVE DIFF @See below
[2018-10-04 06:49] LABS: ANION GAP 11 (5-13); BLOOD UREA NITROGEN 44 mg/dl (7-20); CALCIUM 8.8 mg/dl (8.4-10.2); CARBON DIOXIDE 25 mmol/L (21-31); CHLORIDE 105 mmol/L (97-110); CREATININE 1.59 mg/dl (0.44-1.00); GLUCOSE 153 mg/dl (70-220); MAGNESIUM 2.2 mg/dl (1.7-2.5); PHOSPHORUS 4.6 mg/dl (2.5-4.9); SODIUM 141 mmol/L (135-144)
[2018-10-04] MEDS: ALBUTEROL/IPRATROPIUM (NEB) 3 ML AMP HHN ×2 (08:05→16:22)
[2018-10-04 09:06] LABS: BAND NEUTROPHILS % (M) 7 % (0-4); LYMPHOCYTES % (M) 7 % (15-51); METAMYELOCYTES #M 0.1 10^3/ul (0.0-0.0); METAMYELOCYTES %M 1 % (0-0); MONOCYTE #M 1.2 10^3/ul (0.3-0.9); MONOCYTES % (M) 9 % (0-11); OVALOCYTES 1+ (0-0); PLATELET ESTIMATE NORMAL; POLYCHROMASIA 1+ (0-0); PROMYELOCYTES #M 0.1 10^3/ul (0-0); PROMYELOCYTES % (M) 1 % (0-0); REACTIVE LYMPHOCYTES #M 0.4 10^3/ul (0.0-0.0); REACTIVE LYMPHOCYTES% (M) 3 % (0-0); SEG NEUT #M 10.4 10^3/ul (1.6-7.5); SEGMENTED NEUTROPHILS (M) % 72 % (39-77)
[2018-10-04] MEDS: CHOLECALCIFEROL 1,000 UNIT TAB PO (09:33)
[2018-10-04] MEDS: MEMANTINE 5 MG TAB PO (09:33)
[2018-10-04] MEDS: CHOLECALCIFEROL 2,000 UNIT CAP PO (09:33)
[2018-10-04] MEDS: AMLODIPINE 5 MG TAB PO ×2 (09:34→21:20)
[2018-10-04] MEDS: LIDOCAINE 5% PATCH TD ×2 (09:41→19:07)
[2018-10-04 11:16] LABS: PROCALCITONIN 0.16 ng/mL (<0.10)
[2018-10-04] MEDS: traMADol 50 MG TAB PO ×2 (11:58→21:22)
[2018-10-05] MEDS: ALBUTEROL/IPRATROPIUM (NEB) 3 ML AMP HHN ×3 (00:58→15:54)
[2018-10-05 06:22] LABS: ADD MAN DIFF? NO
[2018-10-05 06:23] LABS: WHITE BLOOD COUNT 14.1 10^3/ul (4.8-10.8)
[2018-10-05 06:23] LABS: BASOPHIL # 0.1 10^3/ul (0.0-0.1); BASOPHILS % 0.6 % (0.0-2.0); EOSINOPHILS % 0.3 % (0.0-7.0); HEMATOCRIT 37.8 % (37.0-47.0); HEMOGLOBIN 12.4 g/dl (12.0-16.0); LYMPHOCYTES # 1.9 10^3/ul (0.8-2.9); LYMPHOCYTES % 13.7 % (15.0-51.0); MEAN CORPUSCULAR HEMOGLOBIN 33.6 pg (29.0-33.0); MEAN CORPUSCULAR HGB CONC 32.8 g/dl (32.0-37.0); MEAN CORPUSCULAR VOLUME 102.4 fl (82.0-101.0); MEAN PLATELET VOLUME 9.3 fl (7.4-10.4); MONOCYTES % 6.9 % (0.0-11.0); NEUTROPHIL # 10.5 10^3/ul (1.6-7.5); NEUTROPHILS % 74.3 % (39.0-77.0); PLATELET COUNT 238 10^3/UL (140-415); RED BLOOD COUNT 3.69 10^6/ul (4.20-5.40); RED CELL DISTRIBUTION WIDTH 13.2 % (11.5-14.5)
[2018-10-05 06:58] LABS: ALANINE AMINOTRANSFERASE 19 IU/L (13-69); ALBUMIN 3.5 g/dl (3.3-4.9); ALBUMIN/GLOBULIN RATIO 1.02; ALKALINE PHOSPHATASE 72 IU/L (42-121); ANION GAP 10 (5-13); ASPARTATE AMINO TRANSFERASE 41 IU/L (15-46); BILIRUBIN,INDIRECT 0.7 mg/dl (0-1.1); BILIRUBIN,TOTAL 0.7 mg/dl (0.2-1.3); BLOOD UREA NITROGEN 40 mg/dl (7-20); CALCIUM 9.3 mg/dl (8.4-10.2); CARBON DIOXIDE 24 mmol/L (21-31); CHLORIDE 107 mmol/L (97-110); CREATININE 1.53 mg/dl (0.44-1.00); GLUCOSE 139 mg/dl (70-220); POTASSIUM 4.4 mmol/L (3.5-5.1); SODIUM 141 mmol/L (135-144); TOTAL PROTEIN 6.9 g/dl (6.1-8.1)
[2018-10-05] MEDS: NACL 0.9% 3 ML SYG IV ×3 (07:18→22:02)
[2018-10-05] MEDS: PIPER-TAZO 2.25 GM (PMX) 50 ML IVPB (07:18)
[2018-10-05] MEDS: LANSOPRAZOLE 30 MG CAP PO (07:18)
[2018-10-05] MEDS: CHOLECALCIFEROL 1,000 UNIT TAB PO (08:16)
[2018-10-05] MEDS: CHOLECALCIFEROL 2,000 UNIT CAP PO (08:16)
[2018-10-05] MEDS: MEMANTINE 5 MG TAB PO (08:16)
[2018-10-05] MEDS: AMLODIPINE 5 MG TAB PO ×2 (08:17→22:00)
[2018-10-05] MEDS: LIDOCAINE 5% PATCH TD (08:17)
[2018-10-05] MEDS: ACETAMINOPHEN 325 MG TAB PO ×2 (08:17→14:40)
[2018-10-05] MEDS: traMADol 50 MG TAB PO ×2 (08:32→22:00)
[2018-10-05] MEDS: COSYNTROPIN 0.25 MG INJ IV (14:40)
[2018-10-05] MEDS: HYDROCORTISONE 100 MG INJ IV (18:38)
[2018-10-06] MEDS: ALBUTEROL/IPRATROPIUM (NEB) 3 ML AMP HHN ×3 (00:50→18:27)
[2018-10-06] MEDS: LANSOPRAZOLE 30 MG CAP PO (06:41)
[2018-10-06] MEDS: NACL 0.9% 3 ML SYG IV ×2 (06:41→14:00)
[2018-10-06] MEDS: CHOLECALCIFEROL 2,000 UNIT CAP PO (08:30)
[2018-10-06] MEDS: MEMANTINE 5 MG TAB PO (08:30)
[2018-10-06] MEDS: CHOLECALCIFEROL 1,000 UNIT TAB PO (08:30)
[2018-10-06] MEDS: AMLODIPINE 5 MG TAB PO (08:31)
[2018-10-06] MEDS: LIDOCAINE 5% PATCH TD (08:34)
[2018-10-06] MEDS: traMADol 50 MG TAB PO (08:35)
== END 2018-10-06 20:10 | disposition home or self-care (01) | DRG 199 ==
LOC: RAD 17:44 → 6WM 20:58
DX: S27.0XXA Traumatic pneumothorax, initial encounter (principal); J69.0 Pneumonitis due to inhalation of food and vomit; S22.42XA Multiple fractures of ribs, left side, initial encounter for closed fracture; N17.9 Acute kidney failure, unspecified; N39.0 Urinary tract infection, site not specified; R64 Cachexia; E87.1 Hypo-osmolality and hyponatremia; D53.9 Nutritional anemia, unspecified; E86.0 Dehydration; E87.5 Hyperkalemia; F41.9 Anxiety disorder, unspecified; G30.9 Alzheimer's disease, unspecified; F02.80 Dementia in other diseases classified elsewhere, unspecified severity, without behavioral disturbance, psychotic disturbance, mood disturbance, and anxiety; R06.00 Dyspnea, unspecified; N18.9 Chronic kidney disease, unspecified; I12.9 Hypertensive chronic kidney disease with stage 1 through stage 4 chronic kidney disease, or unspecified chronic kidney disease; I25.10 Atherosclerotic heart disease of native coronary artery without angina pectoris; J40 Bronchitis, not specified as acute or chronic; K21.9 Gastro-esophageal reflux disease without esophagitis; M19.90 Unspecified osteoarthritis, unspecified site; M81.0 Age-related osteoporosis without current pathological fracture; M62.50 Muscle wasting and atrophy, not elsewhere classified, unspecified site; R29.6 Repeated falls; R13.10 Dysphagia, unspecified; R09.82 Postnasal drip; W01.0XXA Fall on same level from slipping, tripping and stumbling without subsequent striking against object, initial encounter; Z68.22 Body mass index [BMI] 22.0-22.9, adult; Z96.641 Presence of right artificial hip joint; Z86.73 Personal history of transient ischemic attack (TIA), and cerebral infarction without residual deficits
CPT/HCPCS: 36415; 71045; 71046; 71250; 74176; 76536; 80048; 80053; 81001; 81003; 82150; 82306; 82533; 82550; 82570; 82607; 82728; 82746; 82784; 82785; 83540; 83615; 83690; 83735; 84100; 84145; 84155; 84165; 84300; 84443; 84484; 84560; 85025; 85045; 85610; 85651; 85730; 87040; 87086; 87400; 92526; 92610; 93005; 93306; 94640; 94664; 97116; 97161; 97165; 97530; 97535; 99291-25; G0378

== ENCOUNTER 2019-01-17 16:39 | Inpatient (IN) | payer MEDICARE, OTHER ==
[2019-01-17 17:05] LABS: ADD MAN DIFF? NO
[2019-01-17] MEDS: SODIUM CHLORIDE 0.9% 1L BAG IV* (17:06)
[2019-01-17] MEDS: IBUPROFEN 600 MG TAB PO (17:06)
[2019-01-17] MEDS: CEFTRIAXONE 1 GM/50 ML (PMX) 50 ML IVPB (17:06)
[2019-01-17 17:07] LABS: BASOPHILS % 0.4 % (0.0-2.0); EOSINOPHILS # 0.1 10^3/ul (0.0-0.5); EOSINOPHILS % 0.9 % (0.0-7.0); HEMATOCRIT 39.4 % (37.0-47.0); LYMPHOCYTES # 1.4 10^3/ul (0.8-2.9); LYMPHOCYTES % 15.4 % (15.0-51.0); MEAN CORPUSCULAR HEMOGLOBIN 33.6 pg (29.0-33.0); MEAN CORPUSCULAR VOLUME 101.8 fl (82.0-101.0); MONOCYTE # 0.7 10^3/ul (0.3-0.9); MONOCYTES % 7.8 % (0.0-11.0); NEUTROPHIL # 6.9 10^3/ul (1.6-7.5); NEUTROPHILS % 75.1 % (39.0-77.0); PLATELET COUNT 176 10^3/UL (140-415); RED BLOOD COUNT 3.87 10^6/ul (4.20-5.40); RED CELL DISTRIBUTION WIDTH 13.6 % (11.5-14.5)
[2019-01-17 17:07] LABS: WHITE BLOOD COUNT 9.2 10^3/ul (4.8-10.8)
[2019-01-17 17:23] LABS: ALANINE AMINOTRANSFERASE 14 IU/L (13-69); ALBUMIN 4.2 g/dl (3.3-4.9); ALBUMIN/GLOBULIN RATIO 1.07; ALKALINE PHOSPHATASE 76 IU/L (42-121); ANION GAP 13 (5-13); ASPARTATE AMINO TRANSFERASE 30 IU/L (15-46); BILIRUBIN,INDIRECT 0.4 mg/dl (0-1.1); BILIRUBIN,TOTAL 0.4 mg/dl (0.2-1.3); BLOOD UREA NITROGEN 34 mg/dl (7-20); CALCIUM 9.3 mg/dl (8.4-10.2); CARBON DIOXIDE 22 mmol/L (21-31); CHLORIDE 108 mmol/L (97-110); CREATININE 1.35 mg/dl (0.44-1.00); GLUCOSE 138 mg/dl (70-220); LIPASE 53 U/L (23-300); POTASSIUM 5.1 mmol/L (3.5-5.1); SODIUM 143 mmol/L (135-144); TOTAL PROTEIN 8.1 g/dl (6.1-8.1)
[2019-01-17 17:34] LABS: TROPONIN-I < 0.012 ng/ml (0.000-0.120)
[2019-01-17 17:46] LABS: PARTIAL THROMBOPLASTIN TIME 33.2 Sec (23.0-35.0)
[2019-01-17] MEDS: AZITHROMYCIN 500MG/NS (PMX) 250 ML IVPB (17:54)
[2019-01-17 19:56] LABS: LACTIC ACID 1.3 mmol/L (0.5-2.0)
[2019-01-17 20:38] LABS: INR 1.12; PROTIME 14.5 Sec (11.9-14.9); PT RATIO 1.1
[2019-01-17] MEDS ORDERED: ACETAMINOPHEN 325 MG TAB PO (22:30)
[2019-01-17] MEDS ORDERED: ALBUTEROL/IPRATROPIUM (NEB) 3 ML AMP HHN (22:30)
[2019-01-17 22:50] LABS: LACTIC ACID 1.3 mmol/L (0.5-2.0)
[2019-01-17] MEDS: SOD CHLORIDE 0.9% 1,000 ML IV (22:59)
[2019-01-17] MEDS ORDERED: MECLIZINE 25 MG TAB PO (23:00)
[2019-01-18 05:19] LABS: ADD MAN DIFF? NO
[2019-01-18 05:28] LABS: WHITE BLOOD COUNT 6.4 10^3/ul (4.8-10.8)
[2019-01-18 05:28] LABS: BASOPHIL # 0.1 10^3/ul (0.0-0.1); BASOPHILS % 0.8 % (0.0-2.0); EOSINOPHILS # 0.4 10^3/ul (0.0-0.5); EOSINOPHILS % 5.5 % (0.0-7.0); HEMATOCRIT 34.2 % (37.0-47.0); LYMPHOCYTES # 2.2 10^3/ul (0.8-2.9); LYMPHOCYTES % 33.6 % (15.0-51.0); MEAN CORPUSCULAR HEMOGLOBIN 33.5 pg (29.0-33.0); MEAN CORPUSCULAR HGB CONC 32.2 g/dl (32.0-37.0); MEAN CORPUSCULAR VOLUME 104.3 fl (82.0-101.0); MEAN PLATELET VOLUME 10.1 fl (7.4-10.4); MONOCYTE # 0.8 10^3/ul (0.3-0.9); MONOCYTES % 12.7 % (0.0-11.0); NEUTROPHILS % 46.9 % (39.0-77.0); PLATELET COUNT 126 10^3/UL (140-415); RED BLOOD COUNT 3.28 10^6/ul (4.20-5.40); RED CELL DISTRIBUTION WIDTH 13.6 % (11.5-14.5)
[2019-01-18 05:54] LABS: ANION GAP 9 (5-13); BLOOD UREA NITROGEN 27 mg/dl (7-20); CARBON DIOXIDE 24 mmol/L (21-31); CHLORIDE 114 mmol/L (97-110); CREATININE 1.15 mg/dl (0.44-1.00); GLUCOSE 87 mg/dl (70-220); POTASSIUM 4.3 mmol/L (3.5-5.1); SODIUM 147 mmol/L (135-144)
[2019-01-18] MEDS ORDERED: CEFTRIAXONE 1 GM INJ IM (06:00)
[2019-01-18] MEDS: DEXTROSE 5%-0.225% NACL 1,000 ML IV (07:57)
[2019-01-18] MEDS: CHOLECALCIFEROL 2,000 UNIT CAP PO (08:50)
[2019-01-18] MEDS: MEMANTINE 5 MG TAB PO (08:50)
[2019-01-18] MEDS: OLANZAPINE 5 MG TAB PO (08:50)
[2019-01-18] MEDS: ENOXAPARIN 30 MG/0.3 ML SYG SC (08:53)
[2019-01-18] MEDS ORDERED: NON-FORMULARY/PATIENT OWN MED (Ergocalciferol (Vitamin D2) (Vitamin D2) 2,000 UNIT) PO (09:00)
[2019-01-18] MEDS: CEFTRIAXONE 1 GM/50 ML (PMX) 50 ML IVPB (16:29)
[2019-01-18] MEDS: AZITHROMYCIN 500MG/NS (PMX) 250 ML IVPB (17:47)
[2019-01-19] MEDS: DEXTROSE 5%-0.225% NACL 1,000 ML IV ×3 (00:10→15:51)
[2019-01-19] MEDS: FAMOTIDINE 20 MG TAB GTB (08:23)
[2019-01-19] MEDS: MEMANTINE 5 MG TAB PO (08:23)
[2019-01-19] MEDS: CHOLECALCIFEROL 2,000 UNIT CAP PO (08:23)
[2019-01-19] MEDS: OLANZAPINE 5 MG TAB PO (08:24)
[2019-01-19] MEDS: ENOXAPARIN 30 MG/0.3 ML SYG SC (08:30)
[2019-01-19 09:14] LABS: ADD MAN DIFF? NO
[2019-01-19 09:19] LABS: BASOPHILS % 0.6 % (0.0-2.0); EOSINOPHILS # 0.2 10^3/ul (0.0-0.5); EOSINOPHILS % 2.4 % (0.0-7.0); HEMATOCRIT 39.2 % (37.0-47.0); HEMOGLOBIN 12.6 g/dl (12.0-16.0); LYMPHOCYTES # 1.8 10^3/ul (0.8-2.9); LYMPHOCYTES % 26.1 % (15.0-51.0); MEAN CORPUSCULAR HEMOGLOBIN 32.6 pg (29.0-33.0); MEAN CORPUSCULAR HGB CONC 32.1 g/dl (32.0-37.0); MEAN CORPUSCULAR VOLUME 101.3 fl (82.0-101.0); MEAN PLATELET VOLUME 10.3 fl (7.4-10.4); MONOCYTE # 0.5 10^3/ul (0.3-0.9); MONOCYTES % 7.5 % (0.0-11.0); NEUTROPHIL # 4.4 10^3/ul (1.6-7.5); NEUTROPHILS % 62.8 % (39.0-77.0); PLATELET COUNT 150 10^3/UL (140-415); RED BLOOD COUNT 3.87 10^6/ul (4.20-5.40); RED CELL DISTRIBUTION WIDTH 13.5 % (11.5-14.5)
[2019-01-19 09:19] LABS: WHITE BLOOD COUNT 7.1 10^3/ul (4.8-10.8)
[2019-01-19 09:46] LABS: ANION GAP 11 (5-13); BLOOD UREA NITROGEN 25 mg/dl (7-20); CALCIUM 8.8 mg/dl (8.4-10.2); CARBON DIOXIDE 23 mmol/L (21-31); CHLORIDE 110 mmol/L (97-110); CREATININE 0.99 mg/dl (0.44-1.00); GLUCOSE 123 mg/dl (70-220); POTASSIUM 4.6 mmol/L (3.5-5.1); SODIUM 144 mmol/L (135-144)
[2019-01-19] MEDS ORDERED: hydrALAzine 20 MG INJ IV ×2 (16:00→18:00)
[2019-01-19] MEDS: CEFTRIAXONE 1 GM/50 ML (PMX) 50 ML IVPB (16:23)
[2019-01-19] MEDS: AMLODIPINE 5 MG TAB NGT (16:24)
[2019-01-19] MEDS: AZITHROMYCIN 500MG/NS (PMX) 250 ML IVPB (17:15)
[2019-01-20 06:10] LABS: ADD MAN DIFF? NO
[2019-01-20 06:14] LABS: WHITE BLOOD COUNT 8.7 10^3/ul (4.8-10.8)
[2019-01-20 06:14] LABS: BASOPHILS % 0.3 % (0.0-2.0); EOSINOPHILS # 0.3 10^3/ul (0.0-0.5); EOSINOPHILS % 3.4 % (0.0-7.0); HEMATOCRIT 38.4 % (37.0-47.0); HEMOGLOBIN 12.8 g/dl (12.0-16.0); LYMPHOCYTES % 34.5 % (15.0-51.0); MEAN CORPUSCULAR HEMOGLOBIN 33.3 pg (29.0-33.0); MEAN CORPUSCULAR HGB CONC 33.3 g/dl (32.0-37.0); MEAN PLATELET VOLUME 10.2 fl (7.4-10.4); MONOCYTE # 0.5 10^3/ul (0.3-0.9); MONOCYTES % 5.8 % (0.0-11.0); NEUTROPHIL # 4.8 10^3/ul (1.6-7.5); NEUTROPHILS % 55.3 % (39.0-77.0); PLATELET COUNT 170 10^3/UL (140-415); RED BLOOD COUNT 3.84 10^6/ul (4.20-5.40); RED CELL DISTRIBUTION WIDTH 13.2 % (11.5-14.5)
[2019-01-20 06:42] LABS: ANION GAP 10 (5-13); BLOOD UREA NITROGEN 19 mg/dl (7-20); CALCIUM 9.1 mg/dl (8.4-10.2); CARBON DIOXIDE 24 mmol/L (21-31); CHLORIDE 110 mmol/L (97-110); CREATININE 0.91 mg/dl (0.44-1.00); GLUCOSE 109 mg/dl (70-220); POTASSIUM 4.5 mmol/L (3.5-5.1); SODIUM 144 mmol/L (135-144)
[2019-01-20] MEDS: DEXTROSE 5%-0.225% NACL 1,000 ML IV ×2 (07:06→08:19)
[2019-01-20] MEDS: CHOLECALCIFEROL 2,000 UNIT CAP PO (08:18)
[2019-01-20] MEDS: FAMOTIDINE 20 MG TAB GTB (08:18)
[2019-01-20] MEDS: MEMANTINE 5 MG TAB PO (08:18)
[2019-01-20] MEDS: AMLODIPINE 5 MG TAB NGT (08:18)
[2019-01-20] MEDS: OLANZAPINE 5 MG TAB PO (08:19)
[2019-01-20] MEDS: ENOXAPARIN 30 MG/0.3 ML SYG SC (08:51)
[2019-01-20] MEDS: CEFTRIAXONE 1 GM/50 ML (PMX) 50 ML IVPB (16:09)
[2019-01-20] MEDS: AZITHROMYCIN 500MG/NS (PMX) 250 ML IVPB (17:10)
[2019-01-21] MEDS: DEXTROSE 5%-0.225% NACL 1,000 ML IV ×2 (04:48→18:09)
[2019-01-21 06:05] LABS: ADD MAN DIFF? NO
[2019-01-21 06:09] LABS: BASOPHIL # 0.1 10^3/ul (0.0-0.1); BASOPHILS % 0.6 % (0.0-2.0); EOSINOPHILS # 0.4 10^3/ul (0.0-0.5); EOSINOPHILS % 3.6 % (0.0-7.0); HEMATOCRIT 37.9 % (37.0-47.0); LYMPHOCYTES # 2.8 10^3/ul (0.8-2.9); MEAN CORPUSCULAR HEMOGLOBIN 33.6 pg (29.0-33.0); MEAN CORPUSCULAR HGB CONC 34.3 g/dl (32.0-37.0); MEAN CORPUSCULAR VOLUME 97.9 fl (82.0-101.0); MONOCYTE # 0.7 10^3/ul (0.3-0.9); MONOCYTES % 6.4 % (0.0-11.0); NEUTROPHILS % 63.2 % (39.0-77.0); PLATELET COUNT 177 10^3/UL (140-415); RED BLOOD COUNT 3.87 10^6/ul (4.20-5.40); RED CELL DISTRIBUTION WIDTH 13.2 % (11.5-14.5)
[2019-01-21 06:38] LABS: ANION GAP 9 (5-13); BLOOD UREA NITROGEN 30 mg/dl (7-20); CALCIUM 9.2 mg/dl (8.4-10.2); CARBON DIOXIDE 26 mmol/L (21-31); CHLORIDE 108 mmol/L (97-110); CREATININE 1.15 mg/dl (0.44-1.00); GLUCOSE 107 mg/dl (70-220); POTASSIUM 4.7 mmol/L (3.5-5.1); SODIUM 143 mmol/L (135-144)
[2019-01-21] MEDS: MEMANTINE 5 MG TAB PO (08:41)
[2019-01-21] MEDS: CHOLECALCIFEROL 2,000 UNIT CAP PO (08:41)
[2019-01-21] MEDS: FAMOTIDINE 20 MG TAB GTB (08:41)
[2019-01-21] MEDS: AMLODIPINE 5 MG TAB NGT (08:41)
[2019-01-21] MEDS: OLANZAPINE 5 MG TAB PO (08:41)
[2019-01-21] MEDS: ENOXAPARIN 30 MG/0.3 ML SYG SC (08:47)
[2019-01-21] MEDS ORDERED: METOPROLOL 5 MG INJ IV (14:30)
[2019-01-21] MEDS: CEFTRIAXONE 1 GM/50 ML (PMX) 50 ML IVPB (16:49)
[2019-01-21] MEDS: AZITHROMYCIN 500MG/NS (PMX) 250 ML IVPB (17:39)
[2019-01-21] MEDS: METOPROLOL 25 MG TAB PO (21:00)
[2019-01-22] MEDS: DEXTROSE 5%-0.225% NACL 1,000 ML IV ×2 (01:32→23:27)
[2019-01-22] MEDS: FAMOTIDINE 20 MG TAB GTB (08:10)
[2019-01-22] MEDS: MEMANTINE 5 MG TAB PO (08:10)
[2019-01-22] MEDS: CHOLECALCIFEROL 2,000 UNIT CAP PO (08:10)
[2019-01-22] MEDS: ASPIRIN 81 MG TAB PO (08:10)
[2019-01-22] MEDS: OLANZAPINE 5 MG TAB PO (08:10)
[2019-01-22] MEDS: METOPROLOL 25 MG TAB PO ×2 (08:11→20:32)
[2019-01-22] MEDS: AMLODIPINE 2.5 MG TAB NGT (08:11)
[2019-01-22] MEDS: ENOXAPARIN 30 MG/0.3 ML SYG SC (08:19)
[2019-01-22] MEDS: CEFTRIAXONE 1 GM/50 ML (PMX) 50 ML IVPB (17:03)
[2019-01-22] MEDS: AZITHROMYCIN 500MG/NS (PMX) 250 ML IVPB (17:42)
[2019-01-23] MEDS: DEXTROSE 5%-0.225% NACL 1,000 ML IV (04:10)
[2019-01-23 06:05] LABS: ADD MAN DIFF? NO
[2019-01-23 06:12] LABS: BASOPHIL # 0.1 10^3/ul (0.0-0.1); BASOPHILS % 0.7 % (0.0-2.0); EOSINOPHILS # 0.5 10^3/ul (0.0-0.5); EOSINOPHILS % 3.7 % (0.0-7.0); HEMOGLOBIN 12.3 g/dl (12.0-16.0); LYMPHOCYTES # 3.1 10^3/ul (0.8-2.9); LYMPHOCYTES % 22.9 % (15.0-51.0); MEAN CORPUSCULAR HEMOGLOBIN 33.8 pg (29.0-33.0); MEAN CORPUSCULAR HGB CONC 34.2 g/dl (32.0-37.0); MEAN CORPUSCULAR VOLUME 98.9 fl (82.0-101.0); MEAN PLATELET VOLUME 10.1 fl (7.4-10.4); MONOCYTES % 7.3 % (0.0-11.0); NEUTROPHIL # 8.5 10^3/ul (1.6-7.5); NEUTROPHILS % 63.8 % (39.0-77.0); PLATELET COUNT 198 10^3/UL (140-415); RED BLOOD COUNT 3.64 10^6/ul (4.20-5.40); RED CELL DISTRIBUTION WIDTH 13.3 % (11.5-14.5)
[2019-01-23 06:12] LABS: WHITE BLOOD COUNT 13.3 10^3/ul (4.8-10.8)
[2019-01-23 06:38] LABS: ANION GAP 10 (5-13); BLOOD UREA NITROGEN 29 mg/dl (7-20); CALCIUM 9.3 mg/dl (8.4-10.2); CARBON DIOXIDE 25 mmol/L (21-31); CHLORIDE 108 mmol/L (97-110); CREATININE 1.07 mg/dl (0.44-1.00); GLUCOSE 83 mg/dl (70-220); MAGNESIUM 2.1 mg/dl (1.7-2.5); SODIUM 143 mmol/L (135-144)
[2019-01-23] MEDS: FAMOTIDINE 20 MG TAB GTB (08:30)
[2019-01-23] MEDS: CHOLECALCIFEROL 2,000 UNIT CAP PO (08:30)
[2019-01-23] MEDS: OLANZAPINE 5 MG TAB PO (08:30)
[2019-01-23] MEDS: MEMANTINE 5 MG TAB PO (08:30)
[2019-01-23] MEDS: ASPIRIN 81 MG TAB PO (08:31)
[2019-01-23] MEDS: AMLODIPINE 2.5 MG TAB NGT (08:31)
[2019-01-23] MEDS: METOPROLOL 25 MG TAB PO ×2 (08:31→20:34)
[2019-01-23] MEDS: ENOXAPARIN 30 MG/0.3 ML SYG SC (08:38)
[2019-01-23 16:20] LABS: ADD UMIC YES; UR ASCORBIC ACID NEGATIVE (NEGATIVE); UR BILIRUBIN (Dip) NEGATIVE (NEGATIVE); UR BLOOD (Dip) 2+ mg/dL (NEGATIVE); UR CLARITY CLEAR (CLEAR); UR COLOR STRAW (YELLOW); UR GLUCOSE (Dip) NEGATIVE (NEGATIVE); UR KETONES (Dip) NEGATIVE (NEGATIVE); UR LEUKOCYTE ESTERASE (Dip) NEGATIVE Leu/ul (NEGATIVE); UR NITRITE (Dip) NEGATIVE (NEGATIVE); UR RBC 7 /HPF (0-5); UR SPECIFIC GRAVITY (Dip) 1.006 (1.003-1.030); UR TOTAL PROTEIN (Dip) NEGATIVE (NEGATIVE); UR UROBILINOGEN (Dip) NEGATIVE (NEGATIVE); UR WBC 2 /HPF (0-5)
[2019-01-24] MEDS: FAMOTIDINE 20 MG TAB GTB (08:36)
[2019-01-24] MEDS: MEMANTINE 5 MG TAB PO (08:37)
[2019-01-24] MEDS: METOPROLOL 25 MG TAB PO ×2 (08:37→20:20)
[2019-01-24] MEDS: AMLODIPINE 2.5 MG TAB NGT (08:37)
[2019-01-24] MEDS: OLANZAPINE 5 MG TAB PO (08:37)
[2019-01-24] MEDS: CHOLECALCIFEROL 2,000 UNIT CAP PO (08:37)
[2019-01-24] MEDS: ASPIRIN 81 MG TAB PO (08:38)
[2019-01-24] MEDS: ENOXAPARIN 30 MG/0.3 ML SYG SC (08:55)
[2019-01-24] MEDS: SOD CHLORIDE 0.9% 1,000 ML IV (15:49)
[2019-01-25 05:40] LABS: ADD MAN DIFF? NO
[2019-01-25 05:49] LABS: BASOPHIL # 0.1 10^3/ul (0.0-0.1); BASOPHILS % 0.6 % (0.0-2.0); EOSINOPHILS # 0.5 10^3/ul (0.0-0.5); EOSINOPHILS % 4.1 % (0.0-7.0); HEMATOCRIT 38.2 % (37.0-47.0); HEMOGLOBIN 12.8 g/dl (12.0-16.0); LYMPHOCYTES # 2.8 10^3/ul (0.8-2.9); LYMPHOCYTES % 23.5 % (15.0-51.0); MEAN CORPUSCULAR HGB CONC 33.5 g/dl (32.0-37.0); MEAN CORPUSCULAR VOLUME 98.5 fl (82.0-101.0); MONOCYTES % 8.3 % (0.0-11.0); NEUTROPHIL # 7.5 10^3/ul (1.6-7.5); NEUTROPHILS % 61.9 % (39.0-77.0); PLATELET COUNT 213 10^3/UL (140-415); RED BLOOD COUNT 3.88 10^6/ul (4.20-5.40); RED CELL DISTRIBUTION WIDTH 13.6 % (11.5-14.5)
[2019-01-25 05:49] LABS: WHITE BLOOD COUNT 12.1 10^3/ul (4.8-10.8)
[2019-01-25 06:33] LABS: ANION GAP 12 (5-13); BLOOD UREA NITROGEN 33 mg/dl (7-20); CALCIUM 9.2 mg/dl (8.4-10.2); CARBON DIOXIDE 22 mmol/L (21-31); CHLORIDE 110 mmol/L (97-110); CREATININE 1.17 mg/dl (0.44-1.00); GLUCOSE 97 mg/dl (70-220); POTASSIUM 4.8 mmol/L (3.5-5.1); SODIUM 144 mmol/L (135-144)
[2019-01-25] MEDS: CHOLECALCIFEROL 2,000 UNIT CAP PO (09:53)
[2019-01-25] MEDS: MEMANTINE 5 MG TAB PO (09:53)
[2019-01-25] MEDS: FAMOTIDINE 20 MG TAB GTB (09:53)
[2019-01-25] MEDS: AMLODIPINE 2.5 MG TAB NGT (09:53)
[2019-01-25] MEDS: ASPIRIN 81 MG TAB PO (09:53)
[2019-01-25] MEDS: METOPROLOL 25 MG TAB PO ×2 (09:54→20:52)
[2019-01-25] MEDS: ENOXAPARIN 30 MG/0.3 ML SYG SC (09:55)
[2019-01-26] MEDS: ACETAMINOPHEN 500 MG TAB PO (04:36)
[2019-01-26] MEDS: MEMANTINE 5 MG TAB PO (09:05)
[2019-01-26] MEDS: METOPROLOL 25 MG TAB PO ×2 (09:05→20:54)
[2019-01-26] MEDS: AMLODIPINE 2.5 MG TAB NGT (09:06)
[2019-01-26] MEDS: ASPIRIN 81 MG TAB PO (09:06)
[2019-01-26] MEDS: CHOLECALCIFEROL 2,000 UNIT CAP PO (09:06)
[2019-01-26] MEDS: FAMOTIDINE 20 MG TAB GTB (09:06)
[2019-01-26] MEDS: ENOXAPARIN 30 MG/0.3 ML SYG SC (09:20)
[2019-01-26 14:51] LABS: ADD MAN DIFF? NO
[2019-01-26 14:55] LABS: WHITE BLOOD COUNT 12.6 10^3/ul (4.8-10.8)
[2019-01-26 14:56] LABS: BASOPHIL # 0.1 10^3/ul (0.0-0.1); BASOPHILS % 0.9 % (0.0-2.0); EOSINOPHILS # 0.5 10^3/ul (0.0-0.5); EOSINOPHILS % 3.9 % (0.0-7.0); HEMATOCRIT 36.6 % (37.0-47.0); HEMOGLOBIN 12.2 g/dl (12.0-16.0); LYMPHOCYTES % 24.1 % (15.0-51.0); MEAN CORPUSCULAR HEMOGLOBIN 33.5 pg (29.0-33.0); MEAN CORPUSCULAR HGB CONC 33.3 g/dl (32.0-37.0); MEAN CORPUSCULAR VOLUME 100.5 fl (82.0-101.0); MEAN PLATELET VOLUME 10.2 fl (7.4-10.4); MONOCYTES % 8.2 % (0.0-11.0); NEUTROPHIL # 7.8 10^3/ul (1.6-7.5); NEUTROPHILS % 61.4 % (39.0-77.0); PLATELET COUNT 239 10^3/UL (140-415); RED BLOOD COUNT 3.64 10^6/ul (4.20-5.40); RED CELL DISTRIBUTION WIDTH 13.4 % (11.5-14.5)
[2019-01-26 15:23] LABS: ANION GAP 14 (5-13); BLOOD UREA NITROGEN 48 mg/dl (7-20); CALCIUM 9.3 mg/dl (8.4-10.2); CARBON DIOXIDE 18 mmol/L (21-31); CHLORIDE 108 mmol/L (97-110); CREATININE 1.51 mg/dl (0.44-1.00); GLUCOSE 144 mg/dl (70-220); POTASSIUM 4.8 mmol/L (3.5-5.1); SODIUM 140 mmol/L (135-144)
[2019-01-27 05:43] LABS: ADD MAN DIFF? NO
[2019-01-27 05:46] LABS: BASOPHIL # 0.1 10^3/ul (0.0-0.1); BASOPHILS % 0.7 % (0.0-2.0); EOSINOPHILS # 0.6 10^3/ul (0.0-0.5); EOSINOPHILS % 4.9 % (0.0-7.0); HEMATOCRIT 34.8 % (37.0-47.0); HEMOGLOBIN 12.1 g/dl (12.0-16.0); LYMPHOCYTES # 3.5 10^3/ul (0.8-2.9); LYMPHOCYTES % 28.9 % (15.0-51.0); MEAN CORPUSCULAR HEMOGLOBIN 34.2 pg (29.0-33.0); MEAN CORPUSCULAR HGB CONC 34.8 g/dl (32.0-37.0); MEAN CORPUSCULAR VOLUME 98.3 fl (82.0-101.0); MEAN PLATELET VOLUME 10.1 fl (7.4-10.4); MONOCYTES % 8.2 % (0.0-11.0); NEUTROPHIL # 6.7 10^3/ul (1.6-7.5); NEUTROPHILS % 55.9 % (39.0-77.0); PLATELET COUNT 235 10^3/UL (140-415); RED BLOOD COUNT 3.54 10^6/ul (4.20-5.40); RED CELL DISTRIBUTION WIDTH 13.4 % (11.5-14.5)
[2019-01-27 06:14] LABS: MAGNESIUM 2.3 mg/dl (1.7-2.5)
[2019-01-27 06:20] LABS: ANION GAP 14 (5-13); BLOOD UREA NITROGEN 53 mg/dl (7-20); CALCIUM 9.4 mg/dl (8.4-10.2); CARBON DIOXIDE 21 mmol/L (21-31); CHLORIDE 109 mmol/L (97-110); CREATININE 1.52 mg/dl (0.44-1.00); GLUCOSE 95 mg/dl (70-220); POTASSIUM 4.8 mmol/L (3.5-5.1); SODIUM 144 mmol/L (135-144)
[2019-01-27] MEDS: AMLODIPINE 2.5 MG TAB NGT (09:00)
[2019-01-27] MEDS: MEMANTINE 5 MG TAB PO (09:28)
[2019-01-27] MEDS: CHOLECALCIFEROL 2,000 UNIT CAP PO (09:28)
[2019-01-27] MEDS: FAMOTIDINE 20 MG TAB GTB (09:28)
[2019-01-27] MEDS: ASPIRIN 81 MG TAB PO (09:28)
[2019-01-27] MEDS: METOPROLOL 25 MG TAB PO (09:29)
[2019-01-27] MEDS: ENOXAPARIN 30 MG/0.3 ML SYG SC (09:35)
== END 2019-01-27 16:30 | disposition home health service (06) | DRG 194 ==
LOC: 6WM 01-19 18:27 → E/R 16:39 → 6WM 18:10
DX: J18.9 Pneumonia, unspecified organism (principal); E87.0 Hyperosmolality and hypernatremia; N17.9 Acute kidney failure, unspecified; I47.1 Supraventricular tachycardia; E86.0 Dehydration; J45.909 Unspecified asthma, uncomplicated; K21.9 Gastro-esophageal reflux disease without esophagitis; G30.9 Alzheimer's disease, unspecified; F02.80 Dementia in other diseases classified elsewhere, unspecified severity, without behavioral disturbance, psychotic disturbance, mood disturbance, and anxiety; M81.0 Age-related osteoporosis without current pathological fracture; R47.02 Dysphasia; D69.6 Thrombocytopenia, unspecified; D64.9 Anemia, unspecified; Z96.642 Presence of left artificial hip joint; Z79.82 Long term (current) use of aspirin; Z91.81 History of falling
CPT/HCPCS: 36415; 71045; 80048; 80053; 81001; 83605; 83690; 83735; 84443; 84484; 85025; 85610; 85730; 87040-91; 87086; 87400; 93005; 93308; 96365; 96375; 97110; 97116; 97161; 97530; 99285-25